=== PATIENT | female | born 1950 | race Caucasian/White ===

== ENCOUNTER 2024-08-08 11:23 | Outpatient (CLI) | payer OTHER, SELFPAY ==
--- NOTE | ~2024-08-08 | XR_ITS ---
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 TECHNIQUE: Frontal and lateral views of the chest were obtained. COMPARISON: None. FINDINGS: There is no pneumonia, pleural effusion, or pneumothorax. The heart size is normal. There i s a right internal jugular port with tip in superior vena cava. Surgical clips in the right upper soren drant are likely from cholecystectomy. There is mild chronic anterior wedging of multiple vertebral b odies. IMPRESSION: 1. No acute cardiopulmonary disease. Reviewed, dictated and finalized at location A.
--- NOTE | 2024-08-08 12:32 | ECG_ITS ---
Test Date: 2024-08-08 12:56:57 Measurements Intervals [place] Rate: 87 P: 61 MT: 140 QRS: -6 QRSD: 74 T: 68 QT: 352 QTc: 425 Interpretive Statements SINUS RHYTHM WITH OCCASIONAL SUPRAVENTRICULAR PREMATURE COMPLEXES LOW QRS VOLTAGE IN PRECORDIAL LEADS [QRS DEFLECTION < 1.0 mV IN CHEST LEADS] ANTEROSEPTAL MYOCARDIAL INFARCTION [40+ ms Q WAVE IN V1-V4], OF INDETERMINATE AGE ABNORMAL ECG No previous ECG available for comparison Electronically Signed On 08-09-2024 10:12:29 CDT by Ruiz Renner M.D.
[2024-08-08 13:19] LABS: Basophils Absolute Auto 0.1 K/mm3 (0.0-0.1); Eosinophils Absolute Auto 0.1 K/mm3 (0-0.3); Eosinophils Percent Auto 1.1 % (0-4.4); Hematocrit 40.4 % (37.0-47.0); Hemoglobin 12.7 g/dL (12.0-15.0); Immature Granulocyte Absolute 0.09 K/mm3 (0.00-0.031); Immature Granulocyte Percent A 1.6 % (0-0.5); Lymphocytes Absolute Auto 2.79 K/mm3 (0.9-3.2); Mean Corpuscular HGB Conc 31.4 g/dl (32-36); Mean Corpuscular Hemoglobin 30.3 pg (26-34); Mean Corpuscular Volume 96.4 fl (80-100); Mean Platelet Volume 9.4 fl (7.4-10.4); Monocytes Percent Auto 17.7 % (2.6-8.5); Neutrophils Absolute Auto 1.5 K/mm3 (1.3-6.7); Neutrophils Percent Auto 26.6 % (45.5-73.1); Platelet Count Result 321 k/mm3 (150-375); Red Blood Count 4.19 M/mm3 (4.2-5.4); Red Cell Distribution Width 17.8 % (11.5-14.5); White Blood Count 5.5 K/mm3 (4.5-10.0)
[2024-08-08 13:27] LABS: Add Urine Microscopic? YES; Appearance Urine Clear (Clear); Bacteria Urine None Seen /hpf; Bilirubin Urine Negative (Negative); Blood Urine Negative (Negative); Color Urine Yellow (Yellow); Glucose Urine UA Negative (Negative); Ketones Urine Negative (Negative); Leukocyte Esterase Ur 2+ LEU/UL (Negative); Nitrate Urine Negative (Negative); Non Pathogenic Casts 0-2; Protein Urine Negative (Negative); RBC Urine 0-2 /hpf (0-2); Specific Grav Ur 1.014 (1.001-1.035); Squamous Epithelial Cell Urine Occasional /hpf (Few); Urobilinogen Urine 0.2 mg/dL (<2.0); WBC Urine 21-50 /hpf (0-3)
[2024-08-08 13:33] LABS: INR 0.9; Prothrombin Time 13.1 Seconds (11.1-14.7)
[2024-08-08 13:34] LABS: Partial Thromboplastin Time 28.3 Seconds (22.3-36.8)
[2024-08-08 13:47] LABS: Anion Gap 7 mmol/L (4-12); Blood Urea Nitrogen 12 mg/dL (7-17); Calcium 9.8 mg/dL (8.4-10.2); Carbon Dioxide 29 mmol/L (22-30); Chloride 103 mmol/L (98-107); Estimated Glomerular Filt Rate > 60; Glucose 124 mg/dL (65-110); Potassium 3.8 mmol/L (3.4-5.0); Sodium 139 mmol/L (137-145)
== END 2024-08-08 11:24 | disposition home or self-care (01) ==
LOC: ANHSURGERY 11:29
PROVIDERS: PCP Hospitalist; Visit Provider Surgery
DX: C18.5 Malignant neoplasm of splenic flexure (principal); K94.00 Colostomy complication, unspecified
CPT/HCPCS: 36415; 71046; 80048; 81001; 85025; 85610; 85730; 86850; 86900; 86901; 87086; 93005

== ENCOUNTER 2024-08-16 14:10 | Inpatient (IN) | payer OTHER, SELFPAY ==
[2024-08-08 11:27] VITALS: BP 125/6; PULSE 82; RESP 16; TEMP 36.7; O2SAT 97; BMI 25.8
--- NOTE | 2024-08-08 11:29 | PC.NURSE ---
Report to the Outpatient Waiting Room, entrance under the green pavilion located off [facility], at time __06:00am_ on date __08/16/24 . Planned Procedure Time: ___07:30am .? Time changes happen often and if your time is changed the preop area will call you the afternoon before. - You and your visitor will be asked to self-screen and do not enter if you have any COVID symptoms. Please call surgeon if you need to reschedule. - A mask is optional within the hospital at this time. Patient - No food from midnight until time of surgery and no smoking Take only the following medications with a SIP of water on the morning of surgery: Tylenol if needed DO NOT STOP ANY OF YOUR OTHER PRESCRIPTION MEDICATIONS PRIOR TO SURGERY EXCEPT THE FOLLOWING Medications to discontinue per physician Multivitamin 3 days prior per Anesthesia Date to take last dose 08/12/24 Bowel Preop/ Fleets Enema @ Bedtime and am of surgery per Dr Salinas. Hibicleanse scrub per Dr Salinas. Please no make-up, nail greek, hairspray, perfume, deodorant, or body powder the day of surgery.? No jewelry (including any body piercings) or valuables the day of surgery, leave them at home.? Please take a shower or bath the night before, or the morning of, surgery with an antibacterial soap.? Wear comfortable, loose fitting clothing.? - Jewelry must be removed prior to entering the operating room.? Rings and piercings that are not removed may be cut off. - The hospital will not accept responsibility for valuables.? - Please leave all valuables, including medications, at home the day of surgery. If you are going home after surgery, a licensed student truck driver must drive you home.? - NO public transportation without another adult if you receive anesthesia. - We recommend that an adult stay with you for 24 hours following discharge. - We also recommend that you do not drive, make important decision, drink alcoholic beverages, or take any drugs that were not prescribed by your health care provider for at least 24 hours after your discharge time. Follow any additional instructions given to you from your surgeon. Telephone instructions given to __patient and asked if any additional questions and then verbalized understanding. Patient advised to call surgeon office or pre surgery nurse liaison [phone] if any additional questions.
--- NOTE | 2024-08-15 12:35 | P.HP_ITS ---
H&P: HPI History of Present Illness Date/Time: 08/15/24 12:35 Chief Complaint: Colon cancer splenic flexure Narrative: The patient is a 74-year-old woman who presented to [facility] last December with a large intestinal obstruction. Imaging showed a splenic flexure tumor as the cause. She underwent diverting loop transverse colostomy. She had a CT scan of the abdomen and pelvis done 05/06/2024 in [place] which did not show any evidence of liver metastasis. Patient has recently finished chemotherapy. She has had quite a bit of trouble with prolapsing of her loop colostomy. She is taken to surgery now for resection of the splenic flexure colon cancer and closure of her colostomy. It has been discussed that she may need splenectomy along with the colon resection. Review of Systems Review of Systems: All systems reviewed & are unremarkable except as noted in HPI and below (HPI and those items noted below) Constitutional: Constitutional: Denies chills and Denies fever(s) Cardiovascular: Cardiovascular: Denies chest pain, Denies diaphoresis, Denies dyspnea and Denies paroxysmal nocturnal dyspnea Respiratory: Respiratory: Denies chest congestion, Denies cough and Denies dyspnea Integumentary/Breasts: Skin/Breast: Denies lesions and Denies rash PMFSH Past Medical History Medical History Arthritis Colon cancer GERD (gastroesophageal reflux disease) Hyperlipidemia Non-insulin dependent diabetes mellitus Post-operative nausea and vomiting Surgical History Surgical History History of appendectomy History of cholecystectomy History of creation of ostomy History of removal of ovarian cyst 12/2023 - diverting transverse loop colostomy Social History Social History Smoking packs per day: 1 Smoking cigarettes per day: 20.0 Years smoked: 58 Smoking pack-years: 58.00 Smoking status: Former smoker Smoking end date: 12/18/23 Alcohol intake: never Substance use: never Current Housing: Decline to Answer Concerned About Future Housing: Decline to Answer Difficulty Paying Gas/Electric Bills: Decline to Answer Difficulty Paying for Meds: Decline to Answer Currently Unemployed: Decline to Answer Education: Decline to Answer Difficulty w/ Childcare or Family Care: Decline to Answer Living arrangements: with family Additional living arrangements comments: daughter Madina Occupation/Education: retired Spiritual care concerns: No Meds Home Medications and Allergies Home Medications Medication Instructions Recorded Confirmed Type lidocaine-prilocaine 2.5 %-2.5 % 1 applic topical ONCE 06/29/24 08/08/24 History topical cream magnesium oxide 400 mg PO DAILY 06/29/24 08/08/24 History metformin 500 mg tablet 1,000 mg PO BIDWMEAL 06/29/24 08/08/24 History miconazole nitrate 2 % topical 1 applic topical DAILY 06/29/24 08/08/24 History powder wbvxgmefxdtp-nbytqxtk-piqjio 1 tablet PO DAILY 06/29/24 08/08/24 History tablet (Multivitamin 50 Plus tablet) omeprazole 20 mg capsule,delayed 20 mg PO DAILY 06/29/24 08/08/24 History release potassium chloride 15 mEq 15 meq PO DAILY 06/29/24 08/08/24 History tablet,extended release(part/cryst) sodium chloride 0.65 % nasal spray 1 spray intranasal BID PRN 06/29/24 08/08/24 History aerosol (Nasal [place] (sodium Congestion chloride)) acetaminophen 500 mg tablet 500 mg PO PRN PRN Pain 08/08/24 08/08/24 History Allergies Allergy/AdvReac Type Severity Reaction Status Date / Time corn Allergy Severe Hives Verified 08/08/24 11:39 atorvastatin Allergy Intermediate Hives Verified 08/08/24 11:38 fexofenadine [From Monica] Allergy Intermediate Abdominal Verified 08/08/24 11:38 Pain gabapentin Allergy Intermediate Hives Verified 08/08/24 11:38 latex Allergy Intermediate Hives Verified 08/08/24 11:38 pentazocine Allergy Intermediate Hives Verified 08/08/24 11:38 Fvmtyil-ZIS-YuH Reductase Allergy Intermediate Hives Verified 08/08/24 11:38 Inhibitor aspirin AdvReac Intermediate Gastrointestinal Verified 08/08/24 11:38 Upset fish oil AdvReac Intermediate Gastrointestinal Verified 08/08/24 11:38 Upset ibuprofen AdvReac Intermediate Abdominal Verified 08/08/24 11:38 Pain Exam Const: General: comfortable, no acute distress, alert and awake HENMT: Head: normocephalic and atraumatic Mouth: Yes Normal oral and palatal mucosa present Eyes: Conjunctivae: conjunctivae normal Pupils: Equal, round and reactive pupils present EOM: EOMs intact bilaterally Neck: Neck: normal visual inspection, no lymphadenopathy and nontender Resp: Effort & Inspection: normal respiratory effort Auscultation: clear to auscultation bilaterally Cardio: Rate: regular rate Rhythm: regular rhythm Heart sounds: no gallops, no murmurs and no rubs GI: Inspection: non-distended, scar (Lower abdominal midline), visible herniation (Prolapsed colostomy) and other (Prolapsed upper abdominal transverse colostomy) GI Palp: Yes Soft to palpation, No Tenderness to palpation present (GI), No Hepatomegaly present, No Splenomegaly present and Yes Hernia present other (Parastomal hernia, prolapse reducible) 3-10 cm Auscultation: normal bowel sounds Skin: Lesions: no lesions Rashes: no rashes Neuro: General: no focal motor deficits and CN's II-XI intact bilaterally Cranial nerves: Yes Equal, round and reactive pupils present, Yes Bilaterally intact EOM present, Yes facial symmetry and Yes Midline tongue present Speech: normal speech Motor exam (neuro): 5/5 motor strength present throughout and Motor abnormalities not present Extrem: General: no clubbing, cyanosis or edema and edema Psych: Affect: normal affect Thought process: Normal thought process present Insight: Good insight present (Psych) Assessment and Plan Assessment and plan (1) Cancer of splenic flexure: Code(s): C18.5 - Malignant neoplasm of splenic flexure Status: Chronic Assessment and Plan: Noted to be obstructing last December. Diverting loop colostomy created and patient then received chemotherapy with last dose of chemotherapy July 18. She is taken to surgery at this time for resection of the splenic flexure colon cancer. She understands that this may include splenectomy. We will also restore intestinal continuity by closing the colostomy. Procedure, risks, benefits, alternatives have all been discussed. The usual length of the surgery, time in the hospital, time for recovery have been discussed. Patient agrees and wishes to go ahead. 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 Colostomy will be closed and stoma repaired at the surgery. (3) Non-insulin dependent diabetes mellitus: Status: Chronic (4) Arthritis: Code(s): M19.90 - Unspecified osteoarthritis, unspecified site Status: Chronic (5) GERD (gastroesophageal reflux disease): Qualifiers: Esophagitis presence: esophagitis presence not specified Qualified Code(s): K21.9 - Gastro-esophageal reflux disease without esophagitis Code(s): K21.9 - Gastro-esophageal reflux disease without esophagitis Status: Chronic
[2024-08-16] VITALS (16 sets, daily range): BP systolic 110–142; BP diastolic 53–87; PULSE 75–84; RESP 10–23; TEMP 36.2–37.2; O2SAT 90–100; BMI 25.4
--- NOTE | ~2024-08-16 | CT_ITS ---
CLINICAL INDICATION: Left lower quadrant pain. Postoperative day #5 after splenic flexure resection. COMPARISON: Reference is made to a report from prior CT examination of the abdomen dated 05/06/2024 TECHNIQUE: An enhanced CT of the abdomen and pelvis was performed utilizing multislice spiral [employer] ue reconstructed at 5 mm slice thickness. Coronal and sagittal reconstructions were performed. This CT examination was performed utilizing dose reduction techniques. DLP: 658.2 mGy-cm FINDINGS/OBSERVATIONS: Visualized lower thorax:Left basilar atelectasis. The remainder of the bilateral lung bases are unremarkable. The heart is of normal size, without pericardial effusion. Liver: Trace perihepatic free fluid extending caudally into the right paracolic gutter, not unexpecte d on postoperative day #5. 3 mm well-circumscribed focus of decreased echogenicity within segment 5 of the liver, statistically a cyst. Gallbladder and biliary system: The gallbladder is surgically absent. Pancreas: The pancreas enhances homogeneously without ductal dilatation. Spleen: Trace perisplenic fluid, extending caudally into the left paracolic gutter not unexpected on postoperative day #5. Kidneys: 9 mm well-circumscribed focus of decreased attenuation within the interpolar region of the r ight kidney, too small to characterize but statistically a cyst. The remainder of the bilateral kidneys otherwise enhance symmetrically. No hydronephrosis or renal ca lculi. Adrenal glands: Unremarkable Gastrointestinal tract: Fecal stasis within the rectum. Interloop fluid is also identified adjacent t o multiple loops of hyperemic but nondistended small bowel. No rim-enhancing fluid collections are identified to suggest postoperative abscess (although postoper ative day 5 is typically too early for such a finding). Appendix:The appendix is not definitively visualized. However, no pericecal inflammatory change is id entified suggest the presence of acute appendicitis. Vasculature: Densely calcified atherosclerotic disease without aneurysmal dilatation appreciated. Lymph nodes: Scattered nonpathologically enlarged lymph nodes within the retroperitoneum and at the r oot of the mesentery, a nonspecific finding. Pelvic structures:The uterus is significantly enlarged (to the level of the umbilicus) and heterogene ous with a calcified fibroid to the left of midline. Body wall and musculoskeletal: Expected perioperative appearance to the anterior abdominal wall with asymmetric enlargement of the right rectus muscle, not uncommon after colostomy takedown. No significant degenerative disease within the lumbosacral spine. No lytic or blastic lesions identif ied. IMPRESSION: Expected perioperative appearance of the abdomen and pelvis, as detailed above. Significant uterine enlargement, to the level of the umbilicus with densely calcified fibroid disease . Reviewed, dictated and finalized at location A. ER SECURITY ADMINISTRATOR IMPRESSION: Expected perioperative appearance of the abdomen and pelvis, as detailed above. Significant uterine enlargement, to the level of the umbilicus with densely alexander cified fibroid disease.
[2024-08-16 06:21] LABS: Glucose Point of Care 114 mg/dl (65-105)
[2024-08-16] MEDS: LACTATED RINGERS 1,000 ML 30 ML IV CONT ×2 (06:30→12:12)
[2024-08-16] MEDS: ACETAMINOPHEN 500 MG TABLET 1000 MG PO (07:07)
[2024-08-16] MEDS: ALVIMOPAN 12 MG CAPSULE PO (07:07)
--- NOTE | 2024-08-16 07:17 | WPDANESEPPF ---
Anes - Initial Pre Proc Eval Procedure: Operation Date: 08/16/24 07:30 Proposed Procedures p Resection Splenic Flexure Tumor, Possible Splenectomy - Estevan Salinas MD s Colostomy Closure - Estevan Salinas MD Date/Time: 08/16/24 07:17 Surgeon: Estevan Salinas MD Pre Op Diagnosis: splenic flexure CA, colostomy complication Patient Data Age: 74 Gender: F Height: 1.68 m Weight: 71.6 kg Last Vital Signs Temp 36.2 C L 08/16/24 06:00 Pulse 83 08/16/24 06:00 Resp 18 08/16/24 06:00 BP 125/65 08/16/24 06:00 Pulse Ox 99 08/16/24 06:00 O2 Del Method Room Air 08/16/24 06:00 Allergies Allergy/AdvReac Type Severity Reaction Status Date / Time corn Allergy Severe Hives Verified 08/16/24 06:45 atorvastatin Allergy Intermediate Hives Verified 08/16/24 06:45 fexofenadine [From Monica] Allergy Intermediate Abdominal Verified 08/16/24 06:45 Pain gabapentin Allergy Intermediate Hives Verified 08/16/24 06:45 latex Allergy Intermediate Hives Verified 08/16/24 06:45 pentazocine Allergy Intermediate Hives Verified 08/16/24 06:45 Cvzzqyq-EHT-KdL Reductase Allergy Intermediate Hives Verified 08/16/24 06:45 Inhibitor aspirin AdvReac Intermediate Gastrointestinal Verified 08/16/24 06:45 Upset fish oil AdvReac Intermediate Gastrointestinal Verified 08/16/24 06:45 Upset ibuprofen AdvReac Intermediate Abdominal Verified 08/16/24 06:45 Pain Home Medications Medication Instructions Recorded Confirmed Type lidocaine-prilocaine 2.5 %-2.5 % 1 applic topical ONCE 06/29/24 08/08/24 History topical cream magnesium oxide 400 mg PO DAILY 06/29/24 08/16/24 History metformin 500 mg tablet 1,000 mg PO BIDWMEAL 06/29/24 08/16/24 History miconazole nitrate 2 % topical 1 applic topical DAILY 06/29/24 08/08/24 History powder rljhjqllhfyr-xjhabsov-xltyrw 1 tablet PO DAILY 06/29/24 08/08/24 History tablet (Multivitamin 50 Plus tablet) omeprazole 20 mg capsule,delayed 20 mg PO DAILY 06/29/24 08/16/24 History release potassium chloride 15 mEq 15 meq PO DAILY 06/29/24 08/16/24 History tablet,extended release(part/cryst) sodium chloride 0.65 % nasal spray 1 spray intranasal BID PRN 06/29/24 08/16/24 History aerosol (Nasal [place] (sodium Congestion chloride)) acetaminophen 500 mg tablet 500 mg PO PRN PRN Pain 08/08/24 08/16/24 History Laboratory Tests 08/16/24 06:20 POC Capillary Glucose 114 H mg/dl (65-105) Patient hx anesthesia problems: none Family hx anesthesia problems: none Results Review: All pre-operative results and documents have been reviewed as part of the pre-operative evaluation. [facility] Past Medical History Medical History Arthritis Colon cancer GERD (gastroesophageal reflux disease) Hyperlipidemia Non-insulin dependent diabetes mellitus Post-operative nausea and vomiting Surgical History Surgical History History of appendectomy History of cholecystectomy History of creation of ostomy History of removal of ovarian cyst 12/2023 - diverting transverse loop colostomy Social History Social History Smoking packs per day: 1 Smoking cigarettes per day: 20.0 Years smoked: 58 Smoking pack-years: 58.00 Smoking status: Former smoker Smoking end date: 12/18/23 Alcohol intake: never Substance use: never Current Housing: Decline to Answer Concerned About Future Housing: Decline to Answer Difficulty Paying Gas/Electric Bills: Decline to Answer Difficulty Paying for Meds: Decline to Answer Currently Unemployed: Decline to Answer Education: Decline to Answer Difficulty w/ Childcare or Family Care: Decline to Answer Living arrangements: with family Additional living arrangements comments: daughter Madina Occupation/Education: retired Spiritual care concerns: No Anes - Eval Final PreProcedure Day of Procedure 08/16/24 07:17 Patient weight: normal Heart: regular rate and rhythm Lungs: clear to auscultation Airway: Mallampati scale class II Neurological: alert and oriented Last oral intake: >/= 8 hours ASA classification: III Emergent: no Anesthetic plan: proceed Anesthesia type and monitoring: general ETT Results Review: All pre-operative results and documents have been reviewed as part of the pre-operative evaluation. Informed Consent: The patient's anesthetic plan and its attendant risks and benefits were discussed with the patient/family/POA. Questions were solicited and answers provided to the satisfaction of the patient/family/POA.
--- NOTE | 2024-08-16 07:21 | WPDHPUPDATE1 ---
History and Physical Update Update Date/Time: 08/16/24 07:21 History and Physical has been reviewed, including an updated exam of the patient. There are NO changes in the patient's condition. Risks, benefits, and alternatives have been discussed and questions answered. Patient agrees to proceed with procedure.
[2024-08-16] MEDS: ceFAZolin 2 GM/D5W 50 ML 2 GM/50 ML BAG IVPB (07:23)
[2024-08-16] MEDS: fentaNYL CITRATE INJ (*CRX) 100 MCG/2 ML VIAL 25 MCG IV PUSH ×7 (12:19→13:45)
[2024-08-16 12:24] LABS: Glucose Point of Care 210 mg/dl (65-105)
--- NOTE | 2024-08-16 12:25 | SUR.PHASEI ---
Notified anesthesia provider regarding patient's BG 210. No new orders received at this time.
[2024-08-16] MEDS: ONDANSETRON INJ 4 MG/2 ML VIAL IV PUSH (12:32)
[2024-08-16] MEDS: diphenhydrAMINE HCl INJ 50 MG/ML VIAL 12.5 MG IV PUSH (12:56)
--- NOTE | 2024-08-16 14:25 | ADMGEN ---
This patient, Liseth Dumont, was admitted to 2 Medical Room 241-01. Patient/family oriented to hospital policies and general routines including ID bracelet, bed and alarms, visiting hours, pain management, procedures, bathroom and other care routines, personal items, smoking policy, room service/diet, and visiting hours. Information on how to activate the Rapid Response Team has been discussed. Patient/Family are encouraged to report perceived risks to care and to ask questions if they do not understand what they are told or what they should do.
[2024-08-16] MEDS: LACTATED RINGERS 1,000 ML 125 ML IV CONT (14:45)
[2024-08-16] MEDS: oxyCODONE/ACETAMINOPHEN (*CRX) 10-325 MG TABLET 1 TAB PO (16:48)
[2024-08-16] MEDS: metFORMIN HCL 500 MG TABLET 1000 MG PO (16:49)
--- NOTE | 2024-08-16 18:17 | P.OP_ITS ---
Procedure Note - Detailed Date of Procedure 08/16/24 Pre-op Diagnosis Splenic flexure colon cancer, diverting transverse loop colostomy status, parastomal hernia Post-op Diagnosis Same Procedure Performed Closure transverse loop colostomy, repair parastomal hernia, resection splenic flexure cancer with hand-sewn anastomosis, splenic flexure takedown Surgeon Etsevan Salinas MD [employer] Manager Radha Cruz [facility] Anesthesia General Indications Patient was noted in December to have colonic obstruction due to a splenic flexure mass. Biopsy showed this to be a colon cancer. She had a diverting transverse loop colostomy created in December at another hospital. She has had complications with the colostomy including severe prolapse and a parastomal hernia. She also has had neoadjuvant chemotherapy with her oncologist and had her last treatment July 18. Patient is now taken to surgery for closure of the colostomy as well as resection of the splenic flexure cancer. Findings A was a large parastomal hernia as noted preoperatively. There was significant stomal prolapse. The splenic flexure tumor was in the very distal transverse colon and was tattooed. It was also palpable. Splenic flexure takedown and resection of the tumor with associated mesentery was performed. Hand-sewn 2 layer end-to-end anastomosis was performed Description of Procedure Patient was induced into general anesthesia. Zhang catheter was placed. Abdomen was prepped and draped. We turned our attention 1st to the transverse loop colostomy. We divided the bowel from the skin by incising the mucocutane ous junction circumferentially. Cautery was used for hemostasis. We continued this dissection through adhesions and down into the subcutaneous bowel. The efferent or distal limb of the loop colostomy was fairly easy to dissect free from the fascia and subcutaneous. There were numerous sutures placed in the abdominal wall to keep the proximal or after errant limb secured. This was more difficult to take down but was accomplished without any bowel injury. Once and a 5 bowel was freed from the abdominal wall, we closed the loop colostomy with a 2 layer closure. The inner layer was inverting bidirectional 4-0 chromic suture. The outer layer was sero muscular interrupted Lembert sutures of 4-0 silk. All looked good with this. None of the colonic mesentery had been interrupted whatsoever. The bowel was then dropped back into the abdomen. A few more adhesions were taken down. A midline incision was then performed from nearly the xiphoid to just below the umbilicus. This was including the medial most edge of the large parastomal hernia. Once we had opened the fascia the length of this wound, we were able to take down additional omental adhesions and inspect the abdomen. The tumor was palpable but did not appear to involve the spleen. The liver appeared normal. There were no significantly enlarged lymph nodes associated with the transverse colon distally or the proximal aspect of the descending colon. We started the procedure by dividing the lateral peritoneal attachments to the descending colon starting proximally and proceeding down to almost the sigmoid colon. We then returned to the transverse colon, at least 8 in distal to the colostomy closure, and divided the attached mesentery to the distal transverse colon but stopped at the area of the tumor and divided the omentum leaving the omentum around the tumor in place. I then took down additional adhesions to mobilize the splenic flexure. The tumor was mobile and was not attached to anything other than omentum. The inferior mesenteric vein was found and was divided with the LigaSure. Some additional omentum was divided with the LigaSure and resected. Once the distal transverse and proximal descending colon were fully mobilized, I scored the mesentery to both the proximal and distal lines of resection with the cautery. I dissected near the bowel at the distal line of resection and then used TLC 75 stapler to divide the descending colon about a [address] past the splenic flexure. In similar fashion, I found an area of the mid to distal transverse colon and divided this with the TLC 75 stapler. I then carefully divided the mesentery of the proximal descending and distal transverse colon using LigaSure. No significant bleeding occurred. The specimen was then passed off to pathology in formalin. The splenic flexure had been taken down and mobilizing the distal transverse and proximal descending colon and dividing the inferior mesenteric vein. The 2 ends of bowel looked very healthy. They were able to be placed in proximity with the tension. Two layer hand-sewn end-to-end anastomosis was then performed. The posterior outer layer of 4-0 interrupted silk suture was placed 1st. The 2 staple lines were then excised. Bidirectional running 4-0 chromic suture were used for the posterior inner layer and posterior and anterior inner layer. These were tied together closing the inner layer. The anastomosis was then completed with 4-0 silk Lembert sutures to close the anterior outer layer. All looked good. We dropped the bowel back in the abdomen. We irrigated the right upper quadrant and the area of the colostomy. The surgical team changed gloves for the closure. I turned my attention 1st to the parastomal hernia. Posterior rectus fascia was closed here with running 2-0 Vicryl suture. The anterior rectus fascia was closed with running 1. PDS suture. Some ischemic areas of the skin on the upper aspect of the peristomal area was excised. We had healthy skin from there. I then closed the midline fascia with bidirectional running 1. PDS suture. The peristomal hernia had been repaired in a transverse fashion connecting to the midline closure. Subcutaneous interrupted 3-0 Vicryl sutures were then placed to approximate the subcutaneous at the colostomy site. The skin was then loosely approximated with subcuticular interrupted 4-0 Vicryl suture. Subcutaneous fascia was then closed in the midline incision with interrupted 3-0 Vicryl suture. Some 4-0 Vicryl subcuticular skin suture were placed to secure the omentum and some of the skin adjacent to colostomy and parastomal hernia. We then stapled the skin with wide marilee. The wounds were dressed with Xeroform gauze, fluffs, and Medipore tape. Sponge and needle counts were correct x2. Estimated Blood Loss -150 Drains Yes (Zhang catheter) Packing No Pathology Yes (Splenic flexure tumor) Complications None Condition Stable Disposition PACU [facility] Billing Surgery - Charge Forward: Surgery Billing (Resection splenic flexure colon cancer with anastomosis, takedown splenic flexure, closure transverse colostomy, repair parastomal incisional hernia.)
[2024-08-16] MEDS: oxyCODONE/ACETAMINOPHEN (*CRX) 5-325 MG TABLET 1 TABLET PO (21:13)
--- NOTE | 2024-08-16 22:25 | PC.NURSE ---
Pt did not take 1600 metformin, pt had concerns about whether to take them post-op but did not verbalize this to previous RN. Pt educated on medication refusal and communication with healthcare team. Pills at bedside were disposed.
[2024-08-17] MEDS: LACTATED RINGERS 1,000 ML 125 ML IV CONT ×2 (00:49→09:28)
[2024-08-17 03:55] VITALS: BP 100/46; PULSE 86; RESP 18; TEMP 36.8; O2SAT 90
[2024-08-17] MEDS: oxyCODONE/ACETAMINOPHEN (*CRX) 5-325 MG TABLET 1 TABLET PO ×2 (05:06→09:28)
[2024-08-17 06:04] LABS: Hematocrit 35.5 % (37.0-47.0); Hemoglobin 11.3 g/dL (12.0-15.0); Mean Corpuscular HGB Conc 31.8 g/dl (32-36); Mean Corpuscular Hemoglobin 30.2 pg (26-34); Mean Corpuscular Volume 94.9 fl (80-100); Mean Platelet Volume 10.2 fl (7.4-10.4); Platelet Count Result 242 k/mm3 (150-375); Red Blood Count 3.74 M/mm3 (4.2-5.4); Red Cell Distribution Width 16.9 % (11.5-14.5); White Blood Count 16.7 K/mm3 (4.5-10.0)
[2024-08-17 06:21] LABS: Anion Gap 7 mmol/L (4-12); Blood Urea Nitrogen 10 mg/dL (7-17); Calcium 9.1 mg/dL (8.4-10.2); Carbon Dioxide 27 mmol/L (22-30); Chloride 100 mmol/L (98-107); Estimated CRCL calculation 64 ml/min; Estimated Glomerular Filt Rate > 60; Glucose 113 mg/dL (65-110); Potassium 4.3 mmol/L (3.4-5.0); Sodium 134 mmol/L (137-145)
[2024-08-17 07:55] VITALS: BP 109/49; PULSE 91; RESP 20; TEMP 36.9; O2SAT 94
[2024-08-17] MEDS: metFORMIN HCL 500 MG TABLET 1000 MG PO ×2 (09:28→17:26)
[2024-08-17] MEDS: ENOXAPARIN 40 MG/0.4 ML SYRINGE SUB-Q (09:28)
[2024-08-17] MEDS: PANTOPRAZOLE 40 MG TABLET PO (09:28)
[2024-08-17] MEDS: MAGNESIUM OXIDE 400 MG TABLET PO (09:28)
[2024-08-17 10:55] VITALS: BMI 25.4
[2024-08-17] MEDS: MORPHINE SULFATE (*CRX) 4 MG/ML INJ IV PUSH (11:28)
[2024-08-17 11:55] VITALS: BP 107/64; PULSE 90; RESP 20; TEMP 37.1; O2SAT 96
--- NOTE | 2024-08-17 13:12 | P.PNGS_ITS ---
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 Her main complaint today is mid upper abdominal pain. Will discuss adjusting pain medications with Dr. Salinas. She seems to be getting better relief today. Will advance to full liquid diet. Encouraged the patient and spoke with staff about getting up to the chair today. Will repeat labs again tomorrow morning. 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 (3) Non-insulin dependent diabetes mellitus: Status: Chronic (4) Arthritis: Code(s): M19.90 - Unspecified osteoarthritis, unspecified site Status: Chronic (5) GERD (gastroesophageal reflux disease): Qualifiers: Esophagitis presence: esophagitis presence not specified Qualified Code(s): K21.9 - Gastro-esophageal reflux disease without esophagitis Code(s): K21.9 - Gastro-esophageal reflux disease without esophagitis Status: Chronic Plan I have discussed the patient's case and plan of care with Dr. Salinas. Subjective Subjective Date/Time Seen: 08/17/24 12:12 Post Op day: 1 (Closure transverse loop colostomy, repair parastomal hernia, resection splenic flexure cancer with hand-sewn anastomosis, splenic flexure takedown) Patient reports: still having pain, flatus, no bowel movement and afebrile Interval history: Patient is reporting epigastric pain. She reports feeling comfortable when lying down flat in bed, but the pain is aggravated when she sits up or tries to get up out of bed. She has not been able to get up out of bed due to the pain. She tried getting on 2 different occasions but the pain would become so severe that she would feel short of breath and feel like she was about to pass out. She would lie back down and the pain would improve and she would feel better. She did get put back on 2 liters O2 during one of these episodes as she desaturated. Yesterday, she was trying the Percocet 10-325 mg but felt like it would make her too drowsy, so she has been trying the 5-325 mg Percocet and it is helping with her pain. She did require IV morphine this morning due to pain after trying to get up to the chair. She is tolerating clear liquids well. She reports some mild nausea when her pain is severe, but it resolves her pain improves. No vomiting. She is passing some flatus. Review of Systems Review of Systems: All systems reviewed & are unremarkable except as noted in HPI and below Cardiovascular: Cardiovascular: Denies chest pain at rest, Denies chest pain with activity, Denies syncope and Denies rapid heart rate Respiratory: Respiratory: Denies chest congestion, Denies cough, Reports dyspnea (only when she is having severe abdominal pain, resolves with pain control) and Denies dyspnea on exertion Exam Const: General: comfortable and no acute distress Resp: Effort & Inspection: normal respiratory effort Auscultation: clear to auscultation bilaterally Cardio: Rate: regular rate Rhythm: regular rhythm GI: Inspection: non-distended and incision (dressing intact with two small areas of bloody shadow drainage) GI Palp: Yes Soft to palpation, Yes Tenderness to palpation present (GI) and No Guarding due to palpation present (GI) Auscultation: Hypoactive bowel sounds present Urinary Catheter: Urinary Catheter: patent and draining and urine clear Neuro: General: moves all extremities and no focal motor deficits Extrem: General: no calf tenderness and no edema Psych: Mental Status: mental status grossly normal Insight: Good insight present (Psych) Objective Data Vital Signs Vital Signs: Vital Signs - 24 hr 08/16/24 13:20 08/16/24 13:35 08/16/24 13:50 Temperature 98 F Pulse Rate 75 77 77 Respiratory Rate 11 L 12 12 Blood Pressure 135/75 131/68 129/67 Pulse Oximetry 99 99 99 Oxygen Delivery Nasal Cannula Nasal Cannula Nasal Cannula Oxygen Flow Rate 3 3 2 08/16/24 14:08 08/16/24 14:25 08/16/24 14:55 Temperature 97.1 F L 97.5 F L Pulse Rate 77 77 80 Respiratory Rate 12 16 18 Blood Pressure 132/67 130/65 127/61 Pulse Oximetry 99 99 98 Oxygen Delivery Nasal Cannula Oxygen Flow Rate 2 08/16/24 15:55 08/16/24 14:25 08/16/24 16:00 Temperature 97.6 F Pulse Rate 80 Respiratory Rate 18 Blood Pressure 110/87 Pulse Oximetry 97 98 98 Oxygen Delivery Nasal Cannula Room Air Oxygen Flow Rate 2 08/16/24 17:56 08/16/24 21:15 08/16/24 23:55 Temperature 97.6 F 98.9 F Pulse Rate 81 84 Respiratory Rate 18 18 Blood Pressure 116/55 L 112/53 L Pulse Oximetry 96 90 Oxygen Delivery Room Air Oxygen Flow Rate 08/17/24 03:55 08/17/24 07:55 08/17/24 09:25 Temperature 98.2 F 98.5 F Pulse Rate 86 91 Respiratory Rate 18 20 Blood Pressure 100/46 L 109/49 L Pulse Oximetry 90 94 Oxygen Delivery Room Air Oxygen Flow Rate Intake/Output Intake/Output: Intake & Output 08/14/24 08/15/24 08/16/24 08/17/24 23:59 23:59 23:59 23:59 Intake Total 1340 2360 Output Total 70 590 Balance 1270 1770 Meds/Results Medications: Active Medications Generic Name Dose Route Start Last Admin Trade Name Freq PRN Reason Stop Dose Admin Acetaminophen 500 mg 08/16/24 14:10 Acetaminophen 500 Mg Tablet PO Q6H PRN Pain Rated 1-3 Alvimopan 12 mg 08/17/24 21:00 Alvimopan 12 Mg Capsule PO 08/24/24 20:59 Q12HR [facility] Enoxaparin Sodium 40 mg 08/17/24 09:00 08/17/24 09:28 Enoxaparin 40 Mg/0.4 Ml Syringe SUB-Q 40 mg DAILY NADIA Administration Fentanyl Citrate 12.5 mcg 08/16/24 14:10 Fentanyl Citrate Inj (*Crx) 100 Mcg/2 Ml Vial IV PUSH Q2H PRN Breakthrough Pain Rated 1-3 Lactated Ringer's 1,000 mls @ 125 mls/hr 08/16/24 14:10 08/17/24 09:28 Lr - Lactated Ringers Iv IV CONT 125 mls/hr .Q8H [facility] Administration Lidocaine/Prilocaine 1 each 08/17/24 09:00 Lidocaine/Prilocaine Cream 2.5-2.5% Tube TOPICAL DAILY NADIA Magnesium Oxide 400 mg 08/17/24 09:00 08/17/24 09:28 Magnesium Oxide 400 Mg Tablet PO 400 mg DAILY NADIA Administration Metformin HCl 1,000 mg 08/16/24 17:00 08/17/24 09:28 Metformin Hcl 500 Mg Tablet PO 1,000 mg BIDWM NADIA Administration Miscellaneous Information 1 each 08/16/24 00:01 Patient Takes 15 Meq Of Kcl At Home. We Only Carry 10 Meq Or 20 Meq. Do You Wan'T To Julian XX 09/15/24 00:00 CLARIFY [facility] Morphine Sulfate 2 mg 08/16/24 14:10 Morphine Sulfate (*Crx) 2 Mg/Ml Inj IV PUSH Q2H PRN Breakthrough Pain Rated 4-6 or NPO Morphine Sulfate 4 mg 08/16/24 14:10 08/17/24 11:28 Morphine Sulfate (*Crx) 4 Mg/Ml Inj IV PUSH 4 mg Q2H PRN Administration Breakthrough Pain Rated 7-10 or NPO Non-Formulary Medication 15 meq 08/17/24 09:00 Potassium Chloride PO 09/16/24 08:59 DAILY [facility] Ondansetron HCl 4 mg 08/16/24 14:10 Ondansetron Inj 4 Mg/2 Ml Vial IV PUSH Q4H PRN Nausea And Vomiting Oxycodone/Acetaminophen 1 tablet 08/16/24 14:10 08/17/24 09:28 Oxycodone/Acetaminophen (*Crx) 5-325 Mg Tablet PO 1 tablet Q4H PRN Administration Pain Rated 4-6 Oxycodone/Acetaminophen 1 tab 08/16/24 14:10 08/16/24 16:48 Oxycodone/Acetaminophen (*Crx) 10-325 Mg Tablet PO 1 tab Q6H PRN Administration Pain Rated 7-10 Pantoprazole Sodium 40 mg 08/17/24 09:00 08/17/24 09:28 Pantoprazole 40 Mg Tablet PO 40 mg QAM NADIA Administration Sodium Chloride 1 spray 08/16/24 14:10 Saline 0.65% Fish Soln 44 Ml Btl NASAL BID PRN Congestion Labs Labs: Laboratory Results - last 24 hr 08/17/24 05:06 WBC 16.7 H RBC 3.74 L Hgb 11.3 L Hct 35.5 L MCV 94.9 MCH 30.2 MCHC 31.8 L RDW 16.9 H Plt Count 242 MPV 10.2 Sodium 134 L Potassium 4.3 Chloride 100 Carbon Dioxide 27 Anion Gap 7 BUN 10 Creatinine 0.60 L Estim Creat Clear Calc 64 Estimated GFR > 60 Glucose 113 H Calcium 9.1
[2024-08-17 15:55] VITALS: BP 121/51; PULSE 92; RESP 20; TEMP 37; O2SAT 97
[2024-08-17] MEDS: oxyCODONE/ACETAMINOPHEN (*CRX) 10-325 MG TABLET 1 TAB PO (17:26)
[2024-08-17 19:46] VITALS: BP 117/56; PULSE 88; RESP 18; TEMP 36.9; O2SAT 92
[2024-08-17] MEDS: ALVIMOPAN 12 MG CAPSULE PO (20:29)
[2024-08-17] MEDS: ACETAMINOPHEN 500 MG TABLET PO (20:33)
[2024-08-17 23:52] VITALS: BP 107/54; PULSE 84; RESP 18; TEMP 36.6; O2SAT 95
[2024-08-18] VITALS (10 sets, daily range): BP systolic 93–125; BP diastolic 54–68; PULSE 88–100; RESP 16–24; TEMP 36.4–36.9; O2SAT 90–100
[2024-08-18] MEDS: oxyCODONE/ACETAMINOPHEN (*CRX) 10-325 MG TABLET 1 TAB PO ×2 (04:13→11:44)
[2024-08-18] MEDS: ONDANSETRON INJ 4 MG/2 ML VIAL IV PUSH ×2 (04:28→10:46)
[2024-08-18 05:53] LABS: Anion Gap 7 mmol/L (4-12); Blood Urea Nitrogen 7 mg/dL (7-17); Carbon Dioxide 28 mmol/L (22-30); Chloride 98 mmol/L (98-107); Estimated CRCL calculation 64 ml/min; Estimated Glomerular Filt Rate > 60; Glucose 112 mg/dL (65-110); Potassium 3.6 mmol/L (3.4-5.0); Sodium 133 mmol/L (137-145)
[2024-08-18 06:16] LABS: Hematocrit 34.3 % (37.0-47.0); Hemoglobin 11.4 g/dL (12.0-15.0); Mean Corpuscular HGB Conc 33.2 g/dl (32-36); Mean Corpuscular Hemoglobin 31.4 pg (26-34); Mean Corpuscular Volume 94.5 fl (80-100); Mean Platelet Volume 9.7 fl (7.4-10.4); Platelet Count Result 243 k/mm3 (150-375); Red Blood Count 3.63 M/mm3 (4.2-5.4); Red Cell Distribution Width 16.4 % (11.5-14.5); White Blood Count 15.4 K/mm3 (4.5-10.0)
[2024-08-18] MEDS: metFORMIN HCL 500 MG TABLET 1000 MG PO ×2 (10:09→17:15)
[2024-08-18] MEDS: ALVIMOPAN 12 MG CAPSULE PO ×2 (10:10→21:44)
[2024-08-18] MEDS: MAGNESIUM OXIDE 400 MG TABLET PO (10:10)
[2024-08-18] MEDS: ENOXAPARIN 40 MG/0.4 ML SYRINGE SUB-Q (10:10)
[2024-08-18] MEDS: POTASSIUM CHLORIDE 20 MEQ ER TABLET PO ×2 (10:10→17:15)
[2024-08-18] MEDS: PANTOPRAZOLE 40 MG TABLET PO (10:10)
--- NOTE | 2024-08-18 10:46 | P.PNGS_ITS ---
Progress Note: A&P Assessment and Plan (1) Colon cancer: Qualifiers: Colon location: splenic flexure Qualified Code(s): C18.5 - Malignant neoplasm of splenic flexure Code(s): C18.9 - Malignant neoplasm of colon, unspecified Status: Acute Assessment and Plan: Pathology pending. Patient feeling better now postop day 2. With less abdominal pain and able to get up in the chair and walk in the room. She would like to try a soft diet. Voiding well after Zhang catheter removed. Labs look okay al though sodium low and potassium low. Potassium being supplemented. H&H show anemia but not severe. Overall doing well. 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 Wound healing adequately. Start dressing changes daily (3) Non-insulin dependent diabetes mellitus: Status: Chronic Assessment and Plan: Blood sugars running in the low 100s. On metformin 1000 mg twice a day as well as lidocaine topical cream (4) GERD (gastroesophageal reflux disease): Qualifiers: Esophagitis presence: esophagitis presence not specified Qualified Code(s): K21.9 - Gastro-esophageal reflux disease without esophagitis Code(s): K21.9 - Gastro-esophageal reflux disease without esophagitis Status: Chronic Assessment and Plan: Receiving Protonix (5) Arthritis: Code(s): M19.90 - Unspecified osteoarthritis, unspecified site Status: Chronic Subjective Subjective Date/Time Seen: 08/18/24 10:46 Post Op day: 2 Patient reports: feels better, pain is less, tolerating liquids well, voiding w/o difficulty (Zhang catheter removed earlier this morning), flatus, no bowel movement and afebrile Exam Const: General: comfortable, no acute distress, alert, awake and thin Orientation/consciousness: patient oriented x3 and No confusion GI: Inspection: no edema, non-distended, incision (Minimal serous drainage, both incisions healing well) and no visible herniation GI Palp: Yes Soft to palpation, Yes Tenderness to palpation present (GI) (Incisional appropriate tenderness), Yes Guarding due to palpation present (GI), No Hernia present and No Palpable mass present Auscultation: Hypoactive bowel sounds present Objective Data Vital Signs Vital Signs: Vital Signs - 24 hr 08/17/24 11:55 08/17/24 15:55 08/17/24 19:46 Temperature 37.1 C 37.0 C 36.9 C Pulse Rate 90 92 88 Respiratory Rate 20 20 18 Blood Pressure 107/64 121/51 L 117/56 L Pulse Oximetry 96 97 92 Oxygen Delivery Oxygen Flow Rate 08/17/24 23:52 08/18/24 04:00 08/18/24 08:34 Temperature 36.6 C 36.9 C Pulse Rate 84 100 Respiratory Rate 18 20 Blood Pressure 107/54 L 125/68 Pulse Oximetry 95 90 93 Oxygen Delivery Nasal Cannula Oxygen Flow Rate 2 Intake/Output Intake/Output: Intake & Output 08/15/24 08/16/24 08/17/24 08/18/24 23:59 23:59 23:59 23:59 Intake Total 1340 2960 670 Output Total 70 1840 750 Balance 1270 1120 -80 Meds/Results Medications: Active Medications Generic Name Dose Route Start Last Admin Trade Name Freq PRN Reason Stop Dose Admin Acetaminophen 500 mg 08/16/24 14:10 08/17/24 20:33 Acetaminophen 500 Mg Tablet PO 500 mg Q6H PRN Administration Pain Rated 1-3 Alvimopan 12 mg 08/17/24 21:00 08/18/24 10:10 Alvimopan 12 Mg Capsule PO 08/24/24 20:59 12 mg Q12HR NADIA Administration Enoxaparin Sodium 40 mg 08/17/24 09:00 08/18/24 10:10 Enoxaparin 40 Mg/0.4 Ml Syringe SUB-Q 40 mg DAILY NADIA Administration Fentanyl Citrate 12.5 mcg 08/16/24 14:10 Fentanyl Citrate Inj (*Crx) 100 Mcg/2 Ml Vial IV PUSH Q2H PRN Breakthrough Pain Rated 1-3 Lidocaine/Prilocaine 1 each 08/17/24 09:00 Lidocaine/Prilocaine Cream 2.5-2.5% Tube TOPICAL DAILY NADIA Magnesium Oxide 400 mg 08/17/24 09:00 08/18/24 10:10 Magnesium Oxide 400 Mg Tablet PO 400 mg DAILY NADIA Administration Metformin HCl 1,000 mg 08/16/24 17:00 08/18/24 10:09 Metformin Hcl 500 Mg Tablet PO 1,000 mg BIDWM NADIA Administration Morphine Sulfate 2 mg 08/16/24 14:10 Morphine Sulfate (*Crx) 2 Mg/Ml Inj IV PUSH Q2H PRN Breakthrough Pain Rated 4-6 or NPO Morphine Sulfate 4 mg 08/16/24 14:10 08/17/24 11:28 Morphine Sulfate (*Crx) 4 Mg/Ml Inj IV PUSH 4 mg Q2H PRN Administration Breakthrough Pain Rated 7-10 or NPO Ondansetron HCl 4 mg 08/16/24 14:10 08/18/24 04:28 Ondansetron Inj 4 Mg/2 Ml Vial IV PUSH 4 mg Q4H PRN Administration Nausea And Vomiting Oxycodone/Acetaminophen 1 tablet 08/16/24 14:10 08/17/24 09:28 Oxycodone/Acetaminophen (*Crx) 5-325 Mg Tablet PO 1 tablet Q4H PRN Administration Pain Rated 4-6 Oxycodone/Acetaminophen 1 tab 08/16/24 14:10 08/18/24 04:13 Oxycodone/Acetaminophen (*Crx) 10-325 Mg Tablet PO 1 tab Q6H PRN Administration Pain Rated 7-10 Pantoprazole Sodium 40 mg 08/17/24 09:00 08/18/24 10:10 Pantoprazole 40 Mg Tablet PO 40 mg QAM NADIA Administration Potassium Chloride 20 meq 08/18/24 09:00 08/18/24 10:10 Potassium Chloride 20 Meq Er Tablet PO 20 meq BID NADIA Administration Sodium Chloride 1 spray 08/16/24 14:10 Saline 0.65% Fish Soln 44 Ml Btl NASAL BID PRN Congestion Labs Labs: Laboratory Results - last 24 hr 08/18/24 05:17 WBC 15.4 H RBC 3.63 L Hgb 11.4 L Hct 34.3 L MCV 94.5 MCH 31.4 MCHC 33.2 RDW 16.4 H Plt Count 243 MPV 9.7 Sodium 133 L Potassium 3.6 Chloride 98 Carbon Dioxide 28 Anion Gap 7 BUN 7 Creatinine 0.60 L Estim Creat Clear Calc 64 Estimated GFR > 60 Glucose 112 H Calcium 9.0
[2024-08-19] VITALS: BP 128/61; PULSE 87; RESP 24; TEMP 36.8; O2SAT 92
[2024-08-19] MEDS: oxyCODONE/ACETAMINOPHEN (*CRX) 10-325 MG TABLET 1 TAB PO ×2 (01:07→10:09)
[2024-08-19 04:00] VITALS: BP 130/62; PULSE 98; RESP 22; TEMP 36.3; O2SAT 94
[2024-08-19 05:42] LABS: Hematocrit 32.9 % (37.0-47.0); Hemoglobin 10.8 g/dL (12.0-15.0); Mean Corpuscular HGB Conc 32.8 g/dl (32-36); Mean Corpuscular Hemoglobin 30.9 pg (26-34); Mean Corpuscular Volume 94.3 fl (80-100); Mean Platelet Volume 9.7 fl (7.4-10.4); Platelet Count Result 245 k/mm3 (150-375); Red Blood Count 3.49 M/mm3 (4.2-5.4); Red Cell Distribution Width 16.1 % (11.5-14.5); White Blood Count 10.6 K/mm3 (4.5-10.0)
[2024-08-19 05:55] LABS: Anion Gap 7 mmol/L (4-12); Blood Urea Nitrogen 8 mg/dL (7-17); Calcium 8.7 mg/dL (8.4-10.2); Carbon Dioxide 26 mmol/L (22-30); Chloride 100 mmol/L (98-107); Estimated CRCL calculation 64 ml/min; Estimated Glomerular Filt Rate > 60; Glucose 87 mg/dL (65-110); Potassium 3.9 mmol/L (3.4-5.0); Sodium 133 mmol/L (137-145)
[2024-08-19 08:00] VITALS: BP 113/58; PULSE 78; RESP 18; TEMP 36.7; O2SAT 91
--- NOTE | 2024-08-19 08:07 | P.PN_ITS ---
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 She seems to be doing well today. She has decreased her use of IV narcotics and has not used any yet today. Continue to ambulate the hallways and sitting up in chair. Continue soft diet today. Supportive management and maybe home tomorrow if she continues to do well and has more bowel function. Potassium today 3.9. Will give her 1 oral dose of potassium 40 mEq today. Repeat labs tomorrow. Subjective Date/time seen: 08/19/24 08:07 Interval history: Patient seems to be clinically stable this morning. Nurses report no acute changes overnight. She is postop day 3. She gets up and ambulates to the bathroom multiple times on her own. She has tolerated a soft diet with no nausea or emesis. States she has not had a bowel movement yet. She still gets full very quickly. White blood cell count continues to decrease in is near normal now at 10,600. Sodium is still low at 133 but her potassium is in the low-normal range at 3.9. She has not taken any IV pain medication since yesterd ay. Exam GI: Other: Abdomen is soft and nondistended. Midline incision and old colostomy site is closed with no significant redness or drainage. Mild expected tenderness. Objective Data Vital Signs Vital Signs: Vital Signs - 24 hr 08/18/24 08:34 08/18/24 10:50 08/18/24 12:12 Temperature Pulse Rate Respiratory Rate Blood Pressure Pulse Oximetry 93 90 90 Oxygen Delivery Nasal Cannula Room Air Room Air Oxygen Flow Rate 2 08/18/24 12:00 08/18/24 16:00 08/18/24 17:16 Temperature 36.8 C 36.4 C Pulse Rate 95 90 Respiratory Rate 16 16 Blood Pressure 119/60 125/61 Pulse Oximetry 90 100 92 Oxygen Delivery Room Air Oxygen Flow Rate 08/18/24 17:00 08/18/24 20:00 08/18/24 20:00 Temperature 36.6 C 36.6 C Pulse Rate 92 88 Respiratory Rate 16 24 H Blood Pressure 93/54 L 119/61 Pulse Oximetry 91 91 91 Oxygen Delivery Room Air Oxygen Flow Rate 08/19/24 00:00 08/19/24 04:00 Temperature 36.8 C 36.3 C L Pulse Rate 87 98 Respiratory Rate 24 H 22 H Blood Pressure 128/61 130/62 Pulse Oximetry 92 94 Oxygen Delivery Oxygen Flow Rate Intake/Output Intake/Output: Intake & Output 08/16/24 08/17/24 08/18/24 08/19/24 23:59 23:59 23:59 23:59 Intake Total 1340 2960 950 250 Output Total 70 1840 1050 930 Balance 1270 1120 -100 -680 Meds/Results Medications: Active Medications Generic Name Dose Route Start Last Admin Trade Name Freq PRN Reason Stop Dose Admin Acetaminophen 500 mg 08/16/24 14:10 08/17/24 20:33 Acetaminophen 500 Mg Tablet PO 500 mg Q6H PRN Administration Pain Rated 1-3 Alvimopan 12 mg 08/17/24 21:00 08/18/24 21:44 Alvimopan 12 Mg Capsule PO 08/24/24 20:59 12 mg Q12HR NADIA Administration Enoxaparin Sodium 40 mg 08/17/24 09:00 08/18/24 10:10 Enoxaparin 40 Mg/0.4 Ml Syringe SUB-Q 40 mg DAILY [facility] Administration Fentanyl Citrate 12.5 mcg 08/16/24 14:10 Fentanyl Citrate Inj (*Crx) 100 Mcg/2 Ml Vial IV PUSH Q2H PRN Breakthrough Pain Rated 1-3 Lidocaine/Prilocaine 1 each 08/17/24 09:00 Lidocaine/Prilocaine Cream 2.5-2.5% Tube TOPICAL DAILY [facility] Magnesium Oxide 400 mg 08/17/24 09:00 08/18/24 10:10 Magnesium Oxide 400 Mg Tablet PO 400 mg DAILY NADIA Administration Metformin HCl 1,000 mg 08/16/24 17:00 08/18/24 17:15 Metformin Hcl 500 Mg Tablet PO 1,000 mg BIDWM NADIA Administration Morphine Sulfate 1 mg 08/18/24 11:00 Morphine Sulfate (*Crx) 2 Mg/Ml Inj IV PUSH Q2H PRN Breakthrough Pain Rated 4-6 or NPO Morphine Sulfate 2 mg 08/18/24 11:00 Morphine Sulfate (*Crx) 4 Mg/Ml Inj IV PUSH Q2H PRN Breakthrough Pain Rated 7-10 or NPO Ondansetron HCl 4 mg 08/16/24 14:10 08/18/24 10:46 Ondansetron Inj 4 Mg/2 Ml Vial IV PUSH 4 mg Q4H PRN Administration Nausea And Vomiting Oxycodone/Acetaminophen 1 tablet 08/16/24 14:10 08/17/24 09:28 Oxycodone/Acetaminophen (*Crx) 5-325 Mg Tablet PO 1 tablet Q4H PRN Administration Pain Rated 4-6 Oxycodone/Acetaminophen 1 tab 08/16/24 14:10 08/19/24 01:07 Oxycodone/Acetaminophen (*Crx) 10-325 Mg Tablet PO 1 tab Q6H PRN Administration Pain Rated 7-10 Pantoprazole Sodium 40 mg 08/17/24 09:00 08/18/24 10:10 Pantoprazole 40 Mg Tablet PO 40 mg QAM NADIA Administration Potassium Chloride 20 meq 08/18/24 09:00 08/18/24 17:15 Potassium Chloride 20 Meq Er Tablet PO 20 meq BID NADIA Administration Sodium Chloride 1 spray 08/16/24 14:10 Saline 0.65% Fish Soln 44 Ml Btl NASAL BID PRN Congestion Labs Labs: Laboratory Results - last 24 hr 08/19/24 04:59 WBC 10.6 H RBC 3.49 L Hgb 10.8 L Hct 32.9 L MCV 94.3 MCH 30.9 MCHC 32.8 RDW 16.1 H Plt Count 245 MPV 9.7 Sodium 133 L Potassium 3.9 Chloride 100 Carbon Dioxide 26 Anion Gap 7 BUN 8 Creatinine 0.60 L Estim Creat Clear Calc 64 Estimated GFR > 60 Glucose 87 Calcium 8.7
[2024-08-19] MEDS: POTASSIUM CHLORIDE 20 MEQ PACKET (FOR LIQUID) 40 MEQ PO (10:08)
[2024-08-19] MEDS: metFORMIN HCL 500 MG TABLET 1000 MG PO ×2 (10:08→18:36)
[2024-08-19] MEDS: POTASSIUM CHLORIDE 20 MEQ ER TABLET PO ×2 (10:08→18:36)
[2024-08-19] MEDS: MAGNESIUM OXIDE 400 MG TABLET PO (10:08)
[2024-08-19] MEDS: ALVIMOPAN 12 MG CAPSULE PO ×2 (10:08→21:24)
[2024-08-19] MEDS: ENOXAPARIN 40 MG/0.4 ML SYRINGE SUB-Q (10:08)
[2024-08-19 12:00] VITALS: BP 121/63; PULSE 89; RESP 14; TEMP 36.4; O2SAT 95
[2024-08-19 15:53] VITALS: BP 122/73; PULSE 77; RESP 18; TEMP 36.6; O2SAT 94
[2024-08-19 20:00] VITALS: BP 111/52; PULSE 81; RESP 20; TEMP 36.9; O2SAT 96
[2024-08-20] VITALS (7 sets, daily range): BP systolic 112–142; BP diastolic 54–73; PULSE 78–89; RESP 16–20; TEMP 36.2–37.1; O2SAT 92–98
--- NOTE | 2024-08-20 02:07 | PC.NURSE ---
Daylight Savings Time For Daylight Savings Time Ending in the Fall - Clocks are moved back. For Daylight Savings Time Beginning in the Spring - Clocks are moved ahead. For [facility], the time of change occurs at 0200 hrs. Time is taken from the electrical prospecting observer. This entry on the patient's chart recognizes the change in time reflected during documentation. Example: 2 entries for vital signs may be charted for 0200 hrs.
[2024-08-20 05:56] LABS: Basophils Absolute Auto 0.1 K/mm3 (0.0-0.1); Eosinophils Absolute Auto 0.1 K/mm3 (0-0.3); Hematocrit 32.1 % (37.0-47.0); Hemoglobin 10.2 g/dL (12.0-15.0); Immature Granulocyte Absolute 0.15 K/mm3 (0.00-0.031); Immature Granulocyte Percent A 1.4 % (0-0.5); Lymphocytes Absolute Auto 2.24 K/mm3 (0.9-3.2); Lymphocytes Percent Auto 21.4 % (18.3-44.2); Mean Corpuscular HGB Conc 31.8 g/dl (32-36); Mean Corpuscular Hemoglobin 29.7 pg (26-34); Mean Corpuscular Volume 93.6 fl (80-100); Mean Platelet Volume 9.2 fl (7.4-10.4); Monocytes Absolute Auto 1.2 K/mm3 (0.1-0.6); Neutrophils Absolute Auto 6.8 K/mm3 (1.3-6.7); Neutrophils Percent Auto 64.2 % (45.5-73.1); Platelet Count Result 297 k/mm3 (150-375); Red Blood Count 3.43 M/mm3 (4.2-5.4); Red Cell Distribution Width 16.3 % (11.5-14.5); White Blood Count 10.5 K/mm3 (4.5-10.0)
[2024-08-20 06:18] LABS: Anion Gap 8 mmol/L (4-12); Blood Urea Nitrogen 7 mg/dL (7-17); Calcium 8.7 mg/dL (8.4-10.2); Carbon Dioxide 25 mmol/L (22-30); Chloride 101 mmol/L (98-107); Estimated CRCL calculation 76 ml/min; Estimated Glomerular Filt Rate > 60; Glucose 94 mg/dL (65-110); Potassium 3.9 mmol/L (3.4-5.0); Sodium 134 mmol/L (137-145)
[2024-08-20] MEDS: ENOXAPARIN 40 MG/0.4 ML SYRINGE SUB-Q (09:47)
[2024-08-20] MEDS: POTASSIUM CHLORIDE 20 MEQ ER TABLET PO ×2 (09:47→17:37)
[2024-08-20] MEDS: metFORMIN HCL 500 MG TABLET 1000 MG PO ×2 (09:47→17:37)
[2024-08-20] MEDS: MAGNESIUM OXIDE 400 MG TABLET PO (09:47)
[2024-08-20] MEDS: ALVIMOPAN 12 MG CAPSULE PO ×2 (09:47→20:42)
[2024-08-20] MEDS: PANTOPRAZOLE 40 MG TABLET PO (09:47)
[2024-08-20] MEDS: oxyCODONE/ACETAMINOPHEN (*CRX) 5-325 MG TABLET 1 TABLET PO ×2 (09:56→17:40)
--- NOTE | 2024-08-20 11:54 | WPDPN ---
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 Tolerating solid food. Will add Glucerna shakes to her meals since she is a diabetic. States that she feels like she could have a bowel movement today. Passing flatus. Incision seems to be healing okay. There is a small area of dusky skin and the intersection of the 2 incisions. Hopefully that will heal okay but necrosis of the skin the very small area is a possibility. No evidence of wound infection. Continue supportive care. Probably home tomorrow. Subjective Date/time seen: 08/20/24 11:54 Interval history: Patient is doing well. No acute changes overnight no bowel movement yet but she is passing some flatus. Feels like she would probably need to have a bowel movement today. Tolerating low-fiber diet. Would like to get some Glucerna shakes. Exam GI: Other: Abdomen is soft and nondistended. Bowel sounds noted. Incision is dry and intact without any drainage. A small area of dusky skin at the intersection of the midline incision and the transverse colostomy takedown incision. Objective Data Vital Signs Vital Signs: Vital Signs - 24 hr 08/19/24 15:53 08/19/24 20:00 08/20/24 00:00 Temperature 36.6 C 36.9 C 36.3 C L Pulse Rate 77 81 78 Respiratory Rate 18 20 20 Blood Pressure 122/73 111/52 L 115/54 L Pulse Oximetry 94 96 92 Oxygen Delivery 08/19/24 21:24 08/20/24 04:00 08/20/24 08:00 Temperature 36.2 C L 36.9 C Pulse Rate 87 89 Respiratory Rate 20 18 Blood Pressure 131/67 132/57 L Pulse Oximetry 94 94 Oxygen Delivery Room Air 08/20/24 09:50 Temperature Pulse Rate Respiratory Rate Blood Pressure Pulse Oximetry Oxygen Delivery Room Air Intake/Output Intake/Output: Intake & Output 08/17/24 08/18/24 08/19/24 08/20/24 23:59 23:59 23:59 22:59 Intake Total 2960 950 980 830 Output Total 1840 7458 595 5628 Balance 1120 -100 50 -1170 Meds/Results Medications: Active Medications Generic Name Dose Route Start Last Admin Trade Name Freq PRN Reason Stop Dose Admin Acetaminophen 500 mg 08/16/24 14:10 08/17/24 20:33 Acetaminophen 500 Mg Tablet PO 500 mg Q6H PRN Administration Pain Rated 1-3 Alvimopan 12 mg 08/17/24 21:00 08/20/24 09:47 Alvimopan 12 Mg Capsule PO 08/24/24 20:59 12 mg Q12HR NADIA Administration Enoxaparin Sodium 40 mg 08/17/24 09:00 08/20/24 09:47 Enoxaparin 40 Mg/0.4 Ml Syringe SUB-Q 40 mg DAILY NADIA Administration Fentanyl Citrate 12.5 mcg 08/16/24 14:10 Fentanyl Citrate Inj (*Crx) 100 Mcg/2 Ml Vial IV PUSH Q2H PRN Breakthrough Pain Rated 1-3 Lidocaine/Prilocaine 1 each 08/17/24 09:00 Lidocaine/Prilocaine Cream 2.5-2.5% Tube TOPICAL DAILY [facility] Magnesium Oxide 400 mg 08/17/24 09:00 08/20/24 09:47 Magnesium Oxide 400 Mg Tablet PO 400 mg DAILY [facility] Administration Metformin HCl 1,000 mg 08/16/24 17:00 08/20/24 09:47 Metformin Hcl 500 Mg Tablet PO 1,000 mg BIDWM [facility] Administration Morphine Sulfate 1 mg 08/18/24 11:00 Morphine Sulfate (*Crx) 2 Mg/Ml Inj IV PUSH Q2H PRN Breakthrough Pain Rated 4-6 or NPO Morphine Sulfate 2 mg 08/18/24 11:00 Morphine Sulfate (*Crx) 4 Mg/Ml Inj IV PUSH Q2H PRN Breakthrough Pain Rated 7-10 or NPO Ondansetron HCl 4 mg 08/16/24 14:10 08/18/24 10:46 Ondansetron Inj 4 Mg/2 Ml Vial IV PUSH 4 mg Q4H PRN Administration Nausea And Vomiting Oxycodone/Acetaminophen 1 tablet 08/16/24 14:10 08/20/24 09:56 Oxycodone/Acetaminophen (*Crx) 5-325 Mg Tablet PO 1 tablet Q4H PRN Administration Pain Rated 4-6 Oxycodone/Acetaminophen 1 tab 08/16/24 14:10 08/19/24 10:09 Oxycodone/Acetaminophen (*Crx) 10-325 Mg Tablet PO 1 tab Q6H PRN Administration Pain Rated 7-10 Pantoprazole Sodium 40 mg 08/17/24 09:00 08/20/24 09:47 Pantoprazole 40 Mg Tablet PO 40 mg QAM NADIA Administration Potassium Chloride 20 meq 08/18/24 09:00 08/20/24 09:47 Potassium Chloride 20 Meq Er Tablet PO 20 meq BID NADIA Administration Sodium Chloride 1 spray 08/16/24 14:10 Saline 0.65% Fish Soln 44 Ml Btl NASAL BID PRN Congestion Labs Labs: Laboratory Results - last 24 hr 08/20/24 05:15 WBC 10.5 H RBC 3.43 L Hgb 10.2 L Hct 32.1 L MCV 93.6 MCH 29.7 MCHC 31.8 L RDW 16.3 H Plt Count 297 MPV 9.2 Immature Gran % (Auto) 1.4 H Neut % (Auto) 64.2 Lymph % (Auto) 21.4 Delta % (Auto) 11.0 H Eos % (Auto) 1.0 Baso % (Auto) 1.0 Lymph # (Auto) 2.24 Delta # (Auto) 1.2 H Eos # (Auto) 0.1 Baso # (Auto) 0.1 Abs Immat Gran (auto) 0.15 H Absolute Neuts (auto) 6.8 H Absolute Nucleated RBC 0.000 Nucleated RBC % 0.0 Sodium 134 L Potassium 3.9 Chloride 101 Carbon Dioxide 25 Anion Gap 8 BUN 7 Creatinine 0.50 L Estim Creat Clear Calc 76 Estimated GFR > 60 Glucose 94 Calcium 8.7
[2024-08-21 03:52] VITALS: BP 136/60; PULSE 87; RESP 16; TEMP 36.3; O2SAT 92
[2024-08-21 08:00] VITALS: BP 127/65; PULSE 93; RESP 16; TEMP 36.2; O2SAT 95
[2024-08-21] MEDS: ENOXAPARIN 40 MG/0.4 ML SYRINGE SUB-Q (08:24)
[2024-08-21] MEDS: metFORMIN HCL 500 MG TABLET 1000 MG PO ×2 (08:24→18:22)
[2024-08-21] MEDS: MAGNESIUM OXIDE 400 MG TABLET PO (08:24)
[2024-08-21] MEDS: PANTOPRAZOLE 40 MG TABLET PO (08:24)
[2024-08-21] MEDS: POTASSIUM CHLORIDE 20 MEQ ER TABLET PO ×2 (08:24→18:22)
[2024-08-21] MEDS: ALVIMOPAN 12 MG CAPSULE PO (11:09)
[2024-08-21 12:00] VITALS: BP 122/65; PULSE 89; RESP 16; TEMP 37.1; O2SAT 94
--- NOTE | 2024-08-21 14:05 | PM.PNGS ---
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 Her bowels have started moving and she is now tolerating a diet. Incision appears to be healing well. I discussed her suprapubic pain with Dr. Salinas. We will have nursing do a post-void catheterization and if there is more than 300 cc of urine output, then leave a Zhang catheter. Her pain may be related to bladder spasms or muscle spasms. Will continue to follow and consider muscle relaxants if no improvement. I will repeat labs again tomorrow. Plan I have discussed the patient's case and plan of care with Dr. Salinas. Subjective Subjective Date/Time Seen: 08/21/24 14:05 Post Op day: 5 (Closure transverse loop colostomy, repair parastomal hernia, resection splenic flexure cancer with hand-sewn anastomosis, splenic flexure takedown) Patient reports: still having pain, tolerating a regular diet, voiding w/o difficulty, flatus, bowel movement and afebrile Interval history: Patient complaining of suprapubic abdominal pain. The pain will come in waves and she describes this as a cramping type pain. This has been going on through the weekend, but is significantly worse this morning. This pain occurred while I was in the room examining her incision. It lasted about 5-10 seconds and then subsided. This happened twice while I was in the room for about 10 minutes. She has been passing flatus and has now had 3 BMs since yesterday. She reports they were all loose and the last BM was slightly more formed. No blood in her stool. No nausea or vomiting. She is tolerating solid food. She denies dysuria, hematuria, urinary frequency, or any other complaints. Exam Const: General: comfortable and no acute distress Orientation/consciousness: patient oriented x3 GI: Inspection: non-distended GI Palp: Yes Soft to palpation, Yes Tenderness to palpation present (GI) (mild LLQ tenderness and tenderness near her incision), No Guarding due to palpation present (GI) and No Rebound tenderness present Auscultation: normal bowel sounds Other: Incision is dry and marilee intact. No drainage or erythema. There is a small area of dusky skin at the intersection of the midline incision and the transverse colostomy takedown incision. Objective Data Vital Signs Vital Signs: Vital Signs - 24 hr 08/20/24 16:00 08/20/24 20:00 08/20/24 23:53 Temperature 98.2 F 98.8 F 97.5 F L Pulse Rate 81 85 88 Respiratory Rate 18 16 16 Blood Pressure 131/73 131/66 142/68 H Pulse Oximetry 94 98 93 Oxygen Delivery 08/20/24 20:42 08/21/24 03:52 08/21/24 08:00 Temperature 97.3 F L 97.1 F L Pulse Rate 87 93 Respiratory Rate 16 16 Blood Pressure 136/60 127/65 Pulse Oximetry 92 95 Oxygen Delivery Room Air 08/21/24 08:00 08/21/24 12:00 Temperature 98.7 F Pulse Rate 89 Respiratory Rate 16 Blood Pressure 122/65 Pulse Oximetry 95 94 Oxygen Delivery Room Air Intake/Output Intake/Output: Intake & Output 08/19/24 08/20/24 08/20/24 08/21/24 00:59 00:59 23:59 23:59 Intake Total 440 Output Total Balance 440 Meds/Results Medications: Active Medications Generic Name Dose Route Start Last Admin Trade Name Freq PRN Reason Stop Dose Admin Acetaminophen 500 mg 08/16/24 14:10 08/17/24 20:33 Acetaminophen 500 Mg Tablet PO 500 mg Q6H PRN Administration Pain Rated 1-3 Alvimopan 12 mg 08/17/24 21:00 08/21/24 11:09 Alvimopan 12 Mg Capsule PO 08/24/24 20:59 12 mg Q12HR NADIA Administration Enoxaparin Sodium 40 mg 08/17/24 09:00 08/21/24 08:24 Enoxaparin 40 Mg/0.4 Ml Syringe SUB-Q 40 mg DAILY NADIA Administration Fentanyl Citrate 12.5 mcg 08/16/24 14:10 Fentanyl Citrate Inj (*Crx) 100 Mcg/2 Ml Vial IV PUSH Q2H PRN Breakthrough Pain Rated 1-3 Lidocaine/Prilocaine 1 each 08/17/24 09:00 Lidocaine/Prilocaine Cream 2.5-2.5% Tube TOPICAL DAILY [facility]IA Magnesium Oxide 400 mg 08/17/24 09:00 08/21/24 08:24 Magnesium Oxide 400 Mg Tablet PO 400 mg DAILY NADIA Administration Metformin HCl 1,000 mg 08/16/24 17:00 08/21/24 08:24 Metformin Hcl 500 Mg Tablet PO 1,000 mg BIDWM NADIA Administration Morphine Sulfate 1 mg 08/18/24 11:00 Morphine Sulfate (*Crx) 2 Mg/Ml Inj IV PUSH Q2H PRN Breakthrough Pain Rated 4-6 or NPO Morphine Sulfate 2 mg 08/18/24 11:00 Morphine Sulfate (*Crx) 4 Mg/Ml Inj IV PUSH Q2H PRN Breakthrough Pain Rated 7-10 or NPO Ondansetron HCl 4 mg 08/16/24 14:10 08/18/24 10:46 Ondansetron Inj 4 Mg/2 Ml Vial IV PUSH 4 mg Q4H PRN Administration Nausea And Vomiting Oxycodone/Acetaminophen 1 tablet 08/16/24 14:10 08/20/24 17:40 Oxycodone/Acetaminophen (*Crx) 5-325 Mg Tablet PO 1 tablet Q4H PRN Administration Pain Rated 4-6 Oxycodone/Acetaminophen 1 tab 08/16/24 14:10 08/19/24 10:09 Oxycodone/Acetaminophen (*Crx) 10-325 Mg Tablet PO 1 tab Q6H PRN Administration Pain Rated 7-10 Pantoprazole Sodium 40 mg 08/17/24 09:00 08/21/24 08:24 Pantoprazole 40 Mg Tablet PO 40 mg QAM NADIA Administration Potassium Chloride 20 meq 08/18/24 09:00 08/21/24 08:24 Potassium Chloride 20 Meq Er Tablet PO 20 meq BID NADIA Administration Sodium Chloride 1 spray 08/16/24 14:10 Saline 0.65% Fish Soln 44 Ml Btl NASAL BID PRN Congestion
[2024-08-21 16:00] VITALS: BP 139/62; PULSE 65; RESP 16; TEMP 36.4; O2SAT 94
[2024-08-21] MEDS: LOPERAMIDE HCL 2 MG CAPSULE PO (16:58)
[2024-08-21] MEDS: oxyCODONE/ACETAMINOPHEN (*CRX) 5-325 MG TABLET 1 TABLET PO (21:12)
[2024-08-21 22:32] VITALS: BP 117/62; PULSE 84; RESP 18; TEMP 36.9; O2SAT 96
[2024-08-22 01:33] VITALS: BP 105/45; PULSE 80; RESP 18; TEMP 36.1; O2SAT 97
[2024-08-22 05:27] LABS: Hematocrit 33.1 % (37.0-47.0); Mean Corpuscular HGB Conc 33.2 g/dl (32-36); Mean Corpuscular Hemoglobin 30.9 pg (26-34); Mean Platelet Volume 8.9 fl (7.4-10.4); Platelet Count Result 399 k/mm3 (150-375); Red Blood Count 3.56 M/mm3 (4.2-5.4); Red Cell Distribution Width 16.5 % (11.5-14.5); White Blood Count 11.6 K/mm3 (4.5-10.0)
[2024-08-22] MEDS: oxyCODONE/ACETAMINOPHEN (*CRX) 5-325 MG TABLET 1 TABLET PO (05:28)
[2024-08-22 05:33] VITALS: BP 119/55; PULSE 87; RESP 16; TEMP 36.4; O2SAT 95
[2024-08-22 05:41] LABS: Anion Gap 9 mmol/L (4-12); Blood Urea Nitrogen 4 mg/dL (7-17); Calcium 8.9 mg/dL (8.4-10.2); Carbon Dioxide 25 mmol/L (22-30); Chloride 101 mmol/L (98-107); Estimated CRCL calculation 76 ml/min; Estimated Glomerular Filt Rate > 60; Glucose 116 mg/dL (65-110); Potassium 3.8 mmol/L (3.4-5.0); Sodium 135 mmol/L (137-145)
[2024-08-22 08:00] VITALS: BP 116/73; PULSE 85; RESP 18; TEMP 36.8; O2SAT 95; O2SAT 96
[2024-08-22] MEDS: metFORMIN HCL 500 MG TABLET 1000 MG PO (08:28)
[2024-08-22] MEDS: POTASSIUM CHLORIDE 20 MEQ ER TABLET PO (08:28)
[2024-08-22] MEDS: PANTOPRAZOLE 40 MG TABLET PO (08:28)
[2024-08-22] MEDS: MAGNESIUM OXIDE 400 MG TABLET PO (08:28)
[2024-08-22] MEDS: ENOXAPARIN 40 MG/0.4 ML SYRINGE SUB-Q (08:29)
--- NOTE | 2024-08-22 08:59 | PCNFU ---
Nutrition Follow-Up Complete: Moderate Protein Calorie Malnutrition as related to inadequate oral intake in the setting of colon ca/colostomy takedown as evidenced by < 75% of EER for > 7 days: 8% (14 ibs) weight loss in 5 months and mild subcutaneous fat loss (orbital fat pads). Meet estimated nutritional needs. - Slow progressing. Appetite is poor because of nausea. PRNs are available Goal: Pt current nutrition is Regular diet, intakes 5-100%. glucerna TID for additional 220 kcal and 10 g protein each ordered by provider. Nutrition recommendation: No new nutrition recommendations. Continue current nutrition care plan and orders Last recorded weight is 71.6 kg. Bowel Motility: +2 BMs 08/22/24. Having some diarrhea Labs Reviewed: HGb 11.1, Hct 33.1, Na 135, BUN 4, Cre 0.5, Glu 116 Meds Noted: Protonix, Zofran, metformin, lovenox, immodium Skin: Incision to abdomen Additional Notes: Post op day 6 for colostomy takedown. Progressing slowly. Agree with orders RD will monitor weight, labs, skin, oral intake, meds every 5 days.
--- NOTE | 2024-08-22 11:02 | P.DS_ITS ---
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 Presented at outside facility with colonic obstruction. (2) Colostomy complication: Code(s): K94.00 - Colostomy complication, unspecified Status: Chronic Assessment and Plan: Transverse colostomy associated with prolapse and parastomal hernia. Hernia repaired at the time of splenic flexure cancer resection. Colostomy closed (3) Non-insulin dependent diabetes mellitus: Status: Chronic Assessment and Plan: Blood sugars well controlled on usual home meds (4) GERD (gastroesophageal reflux disease): Qualifiers: Esophagitis presence: esophagitis presence not specified Qualified Code(s): K21.9 - Gastro-esophageal reflux disease without esophagitis Code(s): K21.9 - Gastro-esophageal reflux disease without esophagitis Status: Chronic Assessment and Plan: Continue proton pump inhibitors DS: Summary Hospital Course Hospital Course: Patient is a 74-year-old woman who initially saw me on 06/29/2024. In December of 2023, she had presented to [facility] with an obstructing splenic flexure colon mass. She had a diverting transverse loop colostomy performed. Colonoscopy biopsies showed adenocarcinoma. She started on neoadjuvant chemotherapy through Dr. Jeff Davis. Her last chemotherapy treatment was scheduled for 07/18/2024. Evaluation in the office showed that she had complications of her colostomy with severe prolapse and a parastomal hernia. She was taken to surgery on the day of admission, 08/16/2024, and underwent resection of the splenic flexure cancer. Her colostomy was closed and the incisional hernia associated was repaired. Pathology on the splenic flexure tumor showed a T3N0 M0, stage IIA tumor. Thirteen lymph nodes were examined and none contained malignancy. There was some evidence of downstaging on the pathology review. Patient did well following the surgery. She did have some crampy abdominal pain or muscle spasms which were helped with some p.r.n. Valium. She initially was having diarrhea but this went away after her Entereg was stopped. She was comfortable on oral analgesics, ambulating independently, and was able to be discharged on 08/22/2024 in good condition. Status at Discharge Functional status at discharge: independent ambulation Overall status at discharge: patient is progressing back to baseline Time Spent with Patient Time attestation: Total time spent providing and/or coordinating discharge services: Time spent: Less than 30 minutes Exam Const: General: comfortable, alert and awake Orientation/consciousness: No confusion GI: Inspection: non-distended, incision (Healing, no drainage, no cellulitis) and no visible herniation GI Palp: Yes Soft to palpation, Yes Tenderness to palpation present (GI) and No Guarding due to palpation present (GI) Auscultation: normal bowel sounds DS: Data Data Completed and Pending Completed studies during hospitalization: Pending at discharge 08/16/24 10:01 Surgical [PTH] Routine Labs on day of discharge: Labs from last 24 hours 08/22/24 05:07 WBC 11.6 H RBC 3.56 L Hgb 11.0 L Hct 33.1 L MCV 93.0 MCH 30.9 MCHC 33.2 RDW 16.5 H Plt Count 399 H MPV 8.9 Sodium 135 L Potassium 3.8 Chloride 101 Carbon Dioxide 25 Anion Gap 9 BUN 4 L Creatinine 0.50 L Estim Creat Clear Calc 76 Estimated GFR > 60 Glucose 116 H Calcium 8.9 White blood cell count slightly higher, hemoglobin and hematocrit have also increased to same degree Imaging Attestation: I personally reviewed and interpreted this imaging study as follows: (CT scan abdomen and pelvis performed last night) My impression: No evidence of abscess or anastomotic leak, no sign of bowel obstruction or wound abscess. Radiologist's impression: IMPRESSION: Expected perioperative appearance of the abdomen and pelvis, as detailed above. Significant uterine enlargement, to the level of the umbilicus with densely calcified fibroid disease. Discharge Plan Discharge Attending physician on discharge: Estevan Salinas Discharging Clinician: Estevan Salinas Anticipated Discharge Date/Time: 08/22/24 12:35 Patient Disposition: Home, Self-Care Activity: may shower, no straining and as tolerated Diet: regular and diabetic Wound Care Instructions: incision open to air Discharge Instructions: * Ambulate 3-4 x per day and as tolerated. * No lifting over 15-20lbs. * May bathe or shower. Wash incisions with soap and water. * Stairs are OK. * May drive a car in 3 days. * Call or go to the emergency room for severe abdominal pain, vomiting, temperature over 100.5, bleeding, wound separation or persistent drainage, other significant change in condition. * See Dr. Salinas on Wednesday, August 28, 2024. Please call his office to make appointment. * Repeat CBC and BMP lab work on 08/24/2024. Patient Instructions: Antibiotic Form Stand Alone Forms: General Discharge Information Follow-up/Referrals: Estevan Salinas MD [Physician] - 08/28/24 (Call Dr. Ernst office to make appointment to be seen on Wednesday08/28/2024.) Discharge Medications: New oxycodone-acetaminophen 5-325 mg tablet 0.5 - 1 tablet PO Q6H PRN (Reason: pain) Qty: 10 0RF Continued lidocaine-prilocaine 2.5-2.5 % cream 1 applic topical ONCE magnesium oxide 400 mg magnesium capsule 400 mg PO DAILY metformin 500 mg tablet 1,000 mg PO BIDWMEAL miconazole nitrate 2 % powder 1 applic topical DAILY Multivitamin 50 Plus Tablet 1 tablet PO DAILY omeprazole 20 mg capsule,delayed release(DR/EC) 20 mg PO DAILY potassium chloride 15 mEq tablet,ER particles/crystals 15 meq PO DAILY Nasal [place] (sodium chloride) 0.65 % aerosol,spray 1 spray intranasal BID PRN (Reason: Congestion) acetaminophen [Tylenol Ex Str Arthritis Pain] 500 mg Tablet 500 mg PO PRN PRN (Reason: Pain) Other Ambulatory Orders: Basic Metabolic Panel (Routine) Timeframe: 20240824 Location: Determined by Patient Ordered By: Estevan Salinas Complete Blood Count no Diff (Routine) Timeframe: 20240824 Location: Determined by Patient Ordered By: Estevan Salinas Date of admission: 08/16/24 14:10 Primary Care Provider: Susan,Jeff Perez Jr. Admitting Provider: Estevan Salinas Attending physician on admission: Estevan Salinas Condition: Improved
[2024-08-22 12:00] VITALS: BP 117/65; PULSE 86; RESP 16; TEMP 36.8; O2SAT 96
== END 2024-08-22 14:07 | disposition home or self-care (01) | DRG 330 ==
LOC: ANH2MED 14:14
PROVIDERS: Nurse Practitioner Family; Surgery; Admitting Provider Surgery; PCP Hospitalist; Visit Provider Surgery
PROC: 07TP0ZZ Resection of Spleen, Open Approach (ICD-10-PCS; principal; 2024-08-16 07:30)
PROC: 0WQF0ZZ Repair Abdominal Wall, Open Approach (ICD-10-PCS; CPT 44620; 2024-08-16 07:30)
DX: K94.09 Other complications of colostomy (principal); C18.5 Malignant neoplasm of splenic flexure; K43.5 Parastomal hernia without obstruction or gangrene; K21.9 Gastro-esophageal reflux disease without esophagitis; M19.90 Unspecified osteoarthritis, unspecified site; E78.5 Hyperlipidemia, unspecified; E11.9 Type 2 diabetes mellitus without complications; Z90.49 Acquired absence of other specified parts of digestive tract; Z87.891 Personal history of nicotine dependence
CPT/HCPCS: 36415; 74177; 80048; 82948; 85025; 85027; 88307; 88309; A9270; C1713; J0690; J1100; J1200; J1650; J2270; J2405; J2704; J3010; J7120; Q9967